=== PATIENT | male | born 2000 | race Caucasian/White ===

== ENCOUNTER 2022-01-27 19:09 | Emergency (ER) | payer OTHER ==
[~2022-01-27] VITALS: Ht 190 cm; Wt 106.0 kg
[2022-01-27 21:14] LABS: BASOPHILS # (AUTO) 0.1 10^3/uL (0.0-0.1); BASOPHILS % (AUTO) 0 % (0-10); EOSINOPHILS % (AUTO) 0 % (0-10); HEMATOCRIT 47 % (40-54); HEMOGLOBIN 16.1 g/dL (13.3-17.7); LYMPHOCYTES # (AUTO) 0.6 10^3/uL (1.0-4.0); LYMPHOCYTES % (AUTO) 3 % (12-44); MEAN CORPUSCULAR HEMOGLOBIN 30 pg (25-34); MEAN CORPUSCULAR HGB CONC 34 g/dL (32-36); MEAN CORPUSCULAR VOLUME 89 fL (80-99); MEAN PLATELET VOLUME 9.9 fL (9.0-12.2); MONOCYTES # (AUTO) 1.4 10^3/uL (0.0-1.0); MONOCYTES % (AUTO) 7 % (0-12); NEUTROPHILS # (AUTO) 17.4 10^3/uL (1.8-7.8); NEUTROPHILS % (AUTO) 89 % (42-75); PLATELET COUNT 240 10^3/uL (130-400); WHITE BLOOD COUNT 19.6 10^3/uL (4.3-11.0)
[2022-01-27] MEDS ORDERED: KETOROLAC 30 MG/ML VIAL IVP ONE (21:15)
[2022-01-27] MEDS ORDERED: NS IV 1000 ML 1,000 ML IV SCH (21:15)
[2022-01-27 21:17] LABS: CLARITY,URINE CLEAR; COLOR,URINE YELLOW; GLUCOSE, URINE (UA) NEGATIVE (NEGATIVE); KETONES,URINE 3+ (NEGATIVE); LEUKOCYTE ESTERASE ,URINE NEGATIVE (NEGATIVE); NITRITE,URINE NEGATIVE (NEGATIVE); PH,URINE 6.5 (5-9); PROTEIN,URINE NEGATIVE (NEGATIVE)
[2022-01-27 21:20] LABS: ALBUMIN 5.2 GM/DL (3.2-4.5); CHLORIDE 99 MMOL/L (98-107); POTASSIUM 3.8 MMOL/L (3.6-5.0); SODIUM 136 MMOL/L (135-145)
[2022-01-27 21:21] LABS: CALCIUM 10.2 MG/DL (8.5-10.1)
[2022-01-27 21:23] LABS: GLUCOSE 97 MG/DL (70-105); TOTAL PROTEIN 7.9 GM/DL (6.4-8.2)
[2022-01-27 21:24] LABS: BILIRUBIN,TOTAL 0.8 MG/DL (0.1-1.0); CARBON DIOXIDE 20 MMOL/L (21-32)
[2022-01-27 21:26] LABS: ALKALINE PHOSPHATASE 56 U/L (40-136); CREATININE SERUM 1.45 MG/DL (0.60-1.30); GFR ESTIMATED 70
[2022-01-27 21:27] LABS: BUN/CREATININE RATIO 9
[2022-01-27 21:29] LABS: ALANINE AMINOTRANSFERASE 15 U/L (0-55)
[2022-01-27 21:37] LABS: BACTERIA,URINE FEW /HPF; BILIRUBIN,URINE 1+ (NEGATIVE); WBC,URINE 0-2 /HPF
[2022-01-27 22:00] LABS: BAND NEUTROPHILS 2 %; LYMPHOCYTES % (MANUAL) 5 %; MONOCYTES % (MANUAL) 9 %; NEUTROPHILS % (MANUAL) 84 %; RBC MORPH NORMAL
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
[2022-01-27 23:00] VITALS: BP 104/47
== END 2022-01-27 23:02 | disposition home or self-care (01) ==
LOC: ER 19:12
DX: J02.8 Acute pharyngitis due to other specified organisms (principal); Z20.822 Contact with and (suspected) exposure to COVID-19
CPT/HCPCS: 36415; 80053; 81000; 85007; 85027; 86141; 87088; 87430; 87636

== ENCOUNTER 2022-06-10 00:45 | Emergency (ER) | payer OTHER ==
[~2022-06-10] VITALS: Ht 190 cm; Wt 118.0 kg
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
[2022-06-10] MEDS ORDERED: PROP10TA8 PO (01:05)
[2022-06-10] MEDS ORDERED: AUGMENTIN 875 MG TAB (AMOXICILLIN/CLAVULANATE) PO STA (03:14)
[2022-06-10] MEDS ORDERED: OXYMETAZOLINE (AFRIN) 0.05% NA 30 ML BTL STA (03:14)
[2022-06-10] MEDS ORDERED: AMOX-355 PO (03:27)
[2022-06-10] MEDS ORDERED: OXYM-12 NS (03:28)
[2022-06-10] MEDS ORDERED: KETOROLAC 30 MG/ML VIAL IM ONE (03:30)
[2022-06-10 03:35] VITALS: BP 118/79
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
== END 2022-06-10 03:40 | disposition home or self-care (01) ==
LOC: EDUNIT# 00:45 → ER 01:19
DX: S02.2XXA Fracture of nasal bones, initial encounter for closed fracture (principal); Z28.310 Unvaccinated for COVID-19; Y04.8XXA Assault by other bodily force, initial encounter
CPT/HCPCS: 70450; 70486; 73030; 99283; A4565

== ENCOUNTER 2022-06-15 05:38 | Outpatient (CLI) | payer OTHER ==
[~2022-06-15] VITALS: Ht 190.5 cm; Wt 116.5 kg
[~2022-06-15 05:38] MED LIST: AMOX-355 PO; OXYM-12 NS; PROP10TA8 PO
[2022-06-16] MEDS ORDERED: DICL50TA6 PO (06:59)
[2022-06-16] MEDS ORDERED: ACHD5005 PO (09:56)
== END 2022-06-15 10:04 | disposition home or self-care (01) ==
LOC: PREOP 05:38
PROVIDERS: ATTEND Otolaryngology Otolaryngology/Facial Plastic Surgery
DX: Z01.818 Encounter for other preprocedural examination (principal)

== ENCOUNTER 2022-06-16 06:40 | Day surgery (SDC) | payer OTHER ==
[~2022-06-16] VITALS: Ht 190.5 cm; Wt 116.5 kg
[2022-06-16] VITALS (9 sets, daily range): BP systolic 131–155; BP diastolic 67–91
[~2022-06-16 06:40] MED LIST changes: +LACTATED RINGERS 1,000 ML IV PRN
[2022-06-16] MEDS ORDERED: LACTATED RINGERS 1,000 ML IV PRN (06:45)
[2022-06-16] MEDS ORDERED: DICL50TA6 PO (06:59)
--- NOTE | 2022-06-16 07:43 | Progress Note-Pre Operative ---
Pre-Operative Progress Note Date of Available H&P: Jun 16, 2022 Date H&P Reviewed: Jun 16, 2022 Time H&P Reviewed: 07:30 History & Physical: H&P Reviewed, Patient Examed, No changes noted Changes from last HP none Pre-Operative Diagnosis: Displaced Nasal Fracture PEREZ BATES MD Jun 16, 2022 07:43
--- NOTE | 2022-06-16 07:44 | Progress Note-Post Operative ---
Post-Operative Progess Note Surgeon (s)/Service Station Helper (s) Surgeon PEREZ BATES MD Service Station Helper n/a Pre-Operative Diagnosis Displaced Nasal Fracture Post-Operative Diagnosis same Post-Op Procedure Note Date of Procedure: Jun 16, 2022 Name of Procedure Performed: Closed REduction of the Displaced Nasal Fracture Description & Findings Description and Findings: n/a Anesthesia Type get Estimated Blood Loss minimal Packing none. Specimen(s) collected/removed none PEREZ BATES MD Jun 16, 2022 07:44
[2022-06-16] MEDS ORDERED: APAP 325 MG/10.15 ML LIQ (TYLENOL) UDC PO PRN (07:45)
[2022-06-16] MEDS ORDERED: NS IV 1000 ML 1,000 ML IV SCH (07:45)
[2022-06-16] MEDS ORDERED: HYDROcodone/APAP 5 MG/325 MG (LORTAB) TAB PO PRN (07:45)
[2022-06-16] MEDS ORDERED: LIDOCAINE/EPI 2% 1:200,00 (XYLOCAINE) 20 ML VIAL ONE (07:57)
[2022-06-16] MEDS ORDERED: COCAINE HCL 4% 2 ML SYR ONE (07:58)
[2022-06-16] MEDS ORDERED: PHENYLEPHRINE 0.5% NASAL SPR (NEO-SYNEPHRINE) REG ONE (07:58)
[2022-06-16] MEDS ORDERED: MUPIROCIN 2% OINT 22 GM (BACTROBAN) TUBE ONE (07:58)
[2022-06-16] MEDS ORDERED: SEVOFLURANE (ULTANE) 15 ML INHAL SOLN ONE (08:04)
[2022-06-16] MEDS ORDERED: proPOfol 200 MG/20 ML (DIPRIVAN) VIAL IV ONE ×2 (08:04→08:57)
[2022-06-16] MEDS ORDERED: LIDOCAINE PF 2% 5 ML (XYLOCAINE) VIAL ONE (08:04)
[2022-06-16] MEDS ORDERED: ROCURONIUM 50 MG/5 ML (ZEMURON) VIAL IV ONE (08:04)
[2022-06-16] MEDS ORDERED: MIDAZOLAM 2 MG/2 ML (VERSED) VIAL ONE (08:04)
[2022-06-16] MEDS ORDERED: ONDANSETRON 4 MG/2 ML (SDV) Z0FRAN ONE (08:04)
[2022-06-16] MEDS ORDERED: fentaNYL INJ 100 MCG/2 ML AMP ONE (08:04)
--- NOTE | 2022-06-16 09:12 | Anesthesia-General Post-Op ---
General Patient Condition Mental Status/LOC: Same as Preop Cardiovascular: Satisfactory Nausea/Vomiting: Absent Respiratory: Satisfactory Pain: Controlled Complications: Absent Post Op Complications Complications None Follow Up Care/Instructions Patient Instructions None needed. Anesthesia/Patient Condition Patient Condition Patient is doing well, no complaints, stable vital signs, no apparent adverse anesthesia problems. No complications reported per nursing. EDMAR EATON CRNA Jun 16, 2022 09:12
[2022-06-16] MEDS ORDERED: ONDANSETRON 4 MG/2 ML (SDV) Z0FRAN IVP PRN (09:15)
[2022-06-16] MEDS ORDERED: HYDROmorphone 2 MG/ML VIAL (DILAUDID) IV ONE (09:15)
[2022-06-16] MEDS ORDERED: fentaNYL INJ 100 MCG/2 ML AMP IVP ONE (09:15)
[2022-06-16] MEDS ORDERED: ACHD5005 PO (09:56)
== END 2022-06-16 10:50 | disposition home or self-care (01) ==
LOC: SDC 06:40
PROVIDERS: ATTEND Otolaryngology Otolaryngology/Facial Plastic Surgery
DX: S02.2XXA Fracture of nasal bones, initial encounter for closed fracture (principal)
CPT/HCPCS: 87081

== ENCOUNTER → 2022-07-20 | Outpatient (CLI) | payer OTHER ==
[~2022-07-20] MED LIST changes: +ACHD5005 PO; +DICL50TA6 PO; -LACTATED RINGERS 1,000 ML IV PRN
== END ==
LOC: ORTHO 10:20
PROVIDERS: ATTEND Orthopaedic Surgery
DX: M25.311 Other instability, right shoulder (principal); Z98.890 Other specified postprocedural states
CPT/HCPCS: 99203